=== PATIENT | male | born 1940 | race Caucasian/White ===

== ENCOUNTER 2020-11-28 17:46 | Inpatient (IN) | payer OTHER, MEDICARE ==
[~2020-11-28] VITALS: Ht 180.3 cm; Wt 84.4 kg
[2020-11-28 17:52] VITALS: BP 106/50
[2020-11-28 18:15] LABS: ABSOLUTE NEUTROPHILS 7.8 thou/uL (1.4-8.2); BASOPHILS 0.2 % (0.0-2.0); EOSINOPHILS 0.1 % (0.0-3.0); HEMATOCRIT 44.6 % (42.0-52.0); HEMOGLOBIN 14.7 gm/dL (14.0-18.0); LYMPHOCYTES 7.6 % (24.0-44.0); MCH 31.6 pg (26.0-34.0); MCHC 32.9 g/dL (28.0-37.0); MCV 96.2 fL (80.0-100.0); MONOCYTES 8.7 % (1.0-8.0); PLATELET COUNT 227 thou/uL (150-400); POLYS 83.4 % (36.0-66.0); RBC 4.64 mil/uL (4.50-6.00); RDW 13.4 % (10.5-14.5); WBC 9.4 thou/uL (4.0-11.0)
[2020-11-28 18:25] LABS: CALCIUM 8.6 mg/dL (8.5-10.1); CREATININE 0.9 mg/dL (0.7-1.3); POTASSIUM 3.1 mmol/L (3.5-5.1)
[2020-11-28 18:31] LABS: ALBUMIN 3.1 g/dL (3.4-5.0); DIRECT BILIRUBIN 0.9 mg/dL (<0.1-0.2); TOTAL BILIRUBIN 2.4 mg/dL (0.2-1.0); TOTAL PROTEIN 5.9 g/dL (6.4-8.2)
[2020-11-28] MEDS ORDERED: DILT-XR120 MG PO (18:50)
[2020-11-28] MEDS ORDERED: PROTONIX40 M4 PO (18:50)
[2020-11-28] MEDS ORDERED: OXYBUTYNIN 5 MG5 M2 PO (18:51)
[2020-11-28] MEDS ORDERED: FLOMAX0.4 MG PO (18:51)
[2020-11-28] MEDS ORDERED: ZETIA10 MG PO (18:52)
[2020-11-28] MEDS ORDERED: PYRIDOSTIGMINE60 MG PO (18:52)
[2020-11-28] MEDS ORDERED: PROSCAR 5MG TABL5 M1 PO (18:52)
[2020-11-28] MEDS ORDERED: IRBESARTAN-HCT1 EACH PO (18:53)
[2020-11-28] MEDS ORDERED: LIPITOR40 MG PO (18:53)
[2020-11-28] MEDS ORDERED: ASA81BEC PO (18:54)
[2020-11-28] MEDS ORDERED: PLAVIX 75 MG TA75 MG PO (18:54)
[2020-11-28 21:07] LABS: URINE BILIRUBIN NEGATIVE (Negative); URINE BLOOD 1+ (Negative); URINE CLARITY CLEAR; URINE COLOR YELLOW; URINE GLUCOSE-RANDOM* NEGATIVE (Negative); URINE KETONES TRACE (Negative); URINE LEUKOCYTES-REFLEX NEGATIVE (Negative); URINE NITRITE-REFLEX NEGATIVE (Negative); URINE PROTEIN (DIPSTICK) TRACE (Negative); URINE SPECIFIC GRAVITY 1.015 (1.005-1.035)
[2020-11-28 21:34] LABS: BACTERIA-REFLEX 1-9 Few /HPF (None Seen); CASTS None Seen /LPF (None Seen); CRYSTALS None Seen /LPF (None Seen); MUCUS 4-6 Moderate strn/LPF (None Seen); SQUAMOUS 4-10 Moderate /LPF (0-3); URINE WBC-REFLEX 0-5 Rare /HPF (0-5)
[2020-11-29 05:02] LABS: HEMATOCRIT 43.2 % (42.0-52.0); HEMOGLOBIN 14.4 gm/dL (14.0-18.0); MCH 32.1 pg (26.0-34.0); MCHC 33.3 g/dL (28.0-37.0); MCV 96.4 fL (80.0-100.0); RBC 4.48 mil/uL (4.50-6.00); RDW 13.3 % (10.5-14.5); WBC 7.7 thou/uL (4.0-11.0)
[2020-11-29 05:28] LABS: CALCIUM 8.1 mg/dL (8.5-10.1); CREATININE 0.6 mg/dL (0.7-1.3); MAGNESIUM 2.5 mg/dL (1.8-2.4); POTASSIUM 3.8 mmol/L (3.5-5.1)
[2020-11-29 06:57] VITALS: BP 121/59
[2020-11-29 07:00] VITALS: BP 124/59
[2020-11-29 08:29] VITALS: BP 129/68
[2020-11-29 11:49] VITALS: BP 125/95
[2020-11-29 15:26] VITALS: BP 102/53
--- NOTE | 2020-11-29 19:42 | NUR ---
PT ADMIITTED FROM ER FOR COVID POSITIVE AND PNEUMONIA, PT IS A&OX2 ( PERSON AND PLACE), PT IS ON O2 4L/MIN/NC TO KEEP O2SAT 92-96%, PT HAS STARTED IV ABX AND IV REMDESIVIR, PT GETS UP TO CHAIR WITH ASSIST , PT'S VS ARE STABLE, PT DENIES PAIN AND SOB BY THIS TIME.
[2020-11-29 20:39] VITALS: BP 119/55
[2020-11-30 03:46] VITALS: BP 104/66
--- NOTE | 2020-11-30 04:23 | NUR ---
PT CONFUSED. HAS CONFUSED CONVERSATIONS AND IS IRRITABLE. HE TRIES TO GET UP AT TIMES WITHOUT HELP. BED ALARM ON , BED DOWN , CALL LIGHTIS IN REACH. VSS. PROGRESSING SLOWLY TOWARDS D/C GOALS. UNLABORED ON 4LNC.
[2020-11-30 06:50] LABS: ALBUMIN 2.9 g/dL (3.4-5.0); CALCIUM 8.2 mg/dL (8.5-10.1); CREATININE 0.8 mg/dL (0.7-1.3); DIRECT BILIRUBIN 0.2 mg/dL (<0.1-0.2); PHOSPHORUS 1.9 mg/dL (2.6-4.7); POTASSIUM 3.7 mmol/L (3.5-5.1); TOTAL BILIRUBIN 0.8 mg/dL (0.2-1.0)
[2020-11-30 06:51] LABS: ALBUMIN 2.9 g/dL (3.4-5.0)
[2020-11-30 07:52] VITALS: BP 113/61
--- NOTE | 2020-11-30 11:04 | HC ---
[facility] [place] [address] CONSULTATION Name: DAWN ELLISON Room #: 363-P [facility] IN M.R.#: [id number] Admission: 11/28/20 Attend Phys: Orlando Stephen Discharge: Date of : 36 Report #: [id number] THIS REPORT FOR: cc: LUI - Cheryl family physician/PCP LUI - Cheryl family physician/PCP Jose Romero MD ~ DATE OF SERVICE: 11/29/2020 INFECTIOUS DISEASE CONSULTATION ATTENDING PHYSICIAN: Orlando Stephen MD REASON FOR EVALUATION: COVID-19 infection, complicated by pneumonitis, respiratory failure. HISTORY OF PRESENT ILLNESS: Chart reviewed, the patient examined. This is an 80-year-old gentleman with history of hypertension, reflux, who presented to the Emergency Room with encephalopathy, complaints of difficulty breathing. Evaluation was undertaken, confirmed positive COVID testing with antigen. Chest x-ray does show bilateral interstitial infiltrates. Influenza antigen was negative. Procalcitonin 0.05. Urinalysis, minimal pyuria. Blood cultures are sterile thus far. He had low-grade temperature elevations. Notes he has been quite anorexic with poor p.o. intake. ALLERGIES: MORPHINE. CURRENT MEDICATIONS: Include azithromycin, ceftriaxone, enoxaparin, finasteride, oxybutynin, diltiazem CD, aspirin, atorvastatin, clopidogrel, tamsulosin, ascorbic acid, famotidine, methylprednisolone, zinc. PAST MEDICAL HISTORY: As noted above hypertension, hyperlipidemia, reflux, BPH, atrial fibrillation, previous left knee replacement. SOCIAL HISTORY: No ethanol. Of significance, no tobacco or illicit drug use. 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 FAMILY HISTORY: Noncontributory. REVIEW OF SYSTEMS: Otherwise, unremarkable. PHYSICAL EXAMINATION: GENERAL: He is mildly encephalopathic. He is generally responsive, appears somewhat chronically ill, mildly undernourished. VITAL SIGNS: Temperature 97.2 with a T-max of 99.9, pulse 87, respirations 20, blood pressure 125/95. He is maintained on 4 liters nasal cannula oxygen at [address] [address] CONSULTATION Name: DAWN ELLISON Room #: 363-P [facility] IN ..#: [id number] Admission: 11/28/20 Attend Phys: Orlando Stephen Discharge: Date of : 36 Report #: [id number] this point. HEENT: Normocephalic. Extraocular muscles intact. NECK: Supple. LUNGS: Diminished breath sounds. Scattered crackles at the bases. HEART: Regular, has soft systolic murmur. ABDOMEN: Soft, nontender, nondistended. EXTREMITIES: No cyanosis. GENITOURINARY AND RECTAL: Deferred. LABORATORY DATA: Blood cultures sterile thus far. Most recent electrolytes: Sodium 132, potassium 3.8, chloride 99, bicarbonate is 19, anion gap of 14, BUN and creatinine 16 and 0.6, glucose of 132. CBC: White count 7.7, H and H 14.4 and 43.2, platelets of 259. Sed rate of 9. Urinalysis, 0-5 white cells, 1-[address] of the head, no acute intracranial process. Influenza antigen for A and B was negative. Lactic acid 1.4. Procalcitonin 0.05. ASSESSMENT: COVID-19 infection, complicated by pneumonitis, does have degree of encephalopathy, it is unclear what his baseline is. He is quite tenuous at this point. We will add remdesivir, it is difficult to ascertain exactly the timing of his illness. I would not think he have much in the way of reserve. We will dose with ivermectin as well. Continue empiric therapy with antibacterials, corticosteroids, completes regimen of vitamins as well. He remains tenuous. We will continue oxygen support as needed. <ELECTRONICALLY SIGNED> By: Jose Romero MD 11/30/20 1104 [id number] Jose Romero MD /nt
[2020-11-30 11:44] VITALS: BP 111/61
--- NOTE | 2020-11-30 13:56 | NUR ---
INITIAL ASSESSMENT: SUPRIYA reviewed chart and spoke with nursing and attending physician. Pt was admitted from home due to pneumonia. Pt placed in Enhaced Isolation due to positive COVID-19 test. Pt is afebrile and requiring 4L of O2. Pt is on IV abx and IV steroids. Pt is completing courses of Remdesivir and Ivermectin. SUPRIYA placed call to pt's room. No answer. SUPRIYA spoke with pt's , Evelyn, via phone. Introduced role of SW. Pt is normally alert/orientated x 4 at home. Pt's states that pt had positive COVID test on Sat. 11/13. Since that time, pt has had periods of confusion. Prior to admission, pt was independent with ADLs. Pt does not use any DME. No hx of services or post-acute placement. [facility] 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 SUPRIYA requested PT/OT evals to be ordered to assist with recommendations for discharge. SUPRIYA is following to assist as needed with discharge planning.
[2020-11-30 16:26] VITALS: BP 151/128
[2020-11-30 19:32] VITALS: BP 110/60
[2020-12-01 04:01] VITALS: BP 140/51
--- NOTE | 2020-12-01 06:51 | NUR ---
CONFUSED.ON O2 5L NC AND KEPT HIS OXYGEN.WILL GET UP AND UNSTEADY AND WILL NOT CALL.MONITOR SHOWS SINUS ELIAS ARRYTHMIA.POC CONTINUED.
[2020-12-01 07:01] LABS: ALBUMIN 2.5 g/dL (3.4-5.0); CALCIUM 8.1 mg/dL (8.5-10.1); CREATININE 0.7 mg/dL (0.7-1.3); DIRECT BILIRUBIN 0.2 mg/dL (<0.1-0.2); PHOSPHORUS 2.4 mg/dL (2.6-4.7); TOTAL BILIRUBIN 0.5 mg/dL (0.2-1.0); TOTAL PROTEIN 5.1 g/dL (6.4-8.2)
[2020-12-01 08:24] VITALS: BP 118/61
[2020-12-01 12:21] VITALS: BP 131/75
--- NOTE | 2020-12-01 13:29 | NUR ---
SW reviewed chart and spoke with nursing and attending physician. Pt remains in Enhanced Isolation due to COVID-19. Pt is afebrile and on 5L of O2. Pt is on IV abx and IV steroids. Completing courses of Remdesivir and Ivermectin. PT/OT is working with pt to assist with recommendations for discharge. Pt lives at home with his . Pt was independent with ADLs prior to admission. SW is following to assist as needed with discharge planning.
[2020-12-01 15:31] VITALS: BP 131/75
[2020-12-01 15:33] VITALS: BP 128/55
--- NOTE | 2020-12-01 15:33 | NUR ---
FREQUENT REORIENTATION TO NOT GETTING OOB BY HIMSELF AND HIGH RISK FOR FALLS. HE AGREED TO CALL AND ALL BED ALARMS ARE ON AT THIS TIME WELL. DENIES ANY PAIN AT PRESENT AND BREATHING IS NON LABORED OVERALL.
[2020-12-01 20:02] VITALS: BP 120/70
[2020-12-02 03:15] VITALS: BP 118/88
--- NOTE | 2020-12-02 05:52 | NUR ---
PT LYING IN BED. VOIDING PER URINAL. DENIES PAIN. RESTING COMFORTABLY. NO NEEDS VOICED. CALL LIGHT WITHIN REACH. FREQUENT OBSERVATION.
[2020-12-02 07:30] VITALS: BP 160/76
[2020-12-02 09:53] LABS: ALBUMIN 2.9 g/dL (3.4-5.0); CALCIUM 8.6 mg/dL (8.5-10.1); CREATININE 0.7 mg/dL (0.7-1.3); DIRECT BILIRUBIN 0.2 mg/dL (<0.1-0.2); PHOSPHORUS 2.5 mg/dL (2.5-4.9); POTASSIUM 4.5 mmol/L (3.5-5.1); TOTAL BILIRUBIN 0.5 mg/dL (0.2-1.0); TOTAL PROTEIN 5.3 g/dL (6.4-8.2)
[2020-12-02 11:14] VITALS: BP 154/96
[2020-12-02 15:19] VITALS: BP 158/50
--- NOTE | 2020-12-02 18:36 | NUR ---
PATIENT NOW SLEEPING AND RESPIRATIONS ARE EVEN NON LABORED. PLEASANT WITH CARE.
[2020-12-02 20:55] VITALS: BP 172/74
[2020-12-03 05:33] VITALS: BP 125/76
[2020-12-03 06:02] LABS: ALBUMIN 2.5 g/dL (3.4-5.0); CALCIUM 8.2 mg/dL (8.5-10.1); CREATININE 0.6 mg/dL (0.7-1.3); DIRECT BILIRUBIN 0.2 mg/dL (<0.1-0.2); PHOSPHORUS 2.5 mg/dL (2.5-4.9); POTASSIUM 3.8 mmol/L (3.5-5.1); TOTAL BILIRUBIN 0.6 mg/dL (0.2-1.0); TOTAL PROTEIN 4.9 g/dL (6.4-8.2)
--- NOTE | 2020-12-03 06:09 | NUR ---
Pt. slept fair during the night. Very forgetful and impulsive. Reorientation given. Bed alarm for safety. Maintaining O2 sat in the low 90's on 2L/NC. Cont. on enhanced precaution, afebrile.
[2020-12-03 07:27] VITALS: BP 142/77
[2020-12-03 11:06] VITALS: BP 150/73
[2020-12-03 15:54] VITALS: BP 129/60
--- NOTE | 2020-12-03 15:58 | NUR ---
assumed care of pt at 0700. pt aox2-3 in no acute distress. impulsive at times when needing to use bathroom. supplemental oxygen in place. up w/ sba. voicing no concerns at this time. wanting to go home. anticipating d/c saturday per physician.
[2020-12-03 19:42] VITALS: BP 154/63
[2020-12-04 04:56] VITALS: BP 157/82
[2020-12-04 06:06] LABS: HEMATOCRIT 39.8 % (42.0-52.0); HEMOGLOBIN 13.4 gm/dL (14.0-18.0); MCH 31.4 pg (26.0-34.0); MCHC 33.7 g/dL (28.0-37.0); MCV 93.4 fL (80.0-100.0); RBC 4.26 mil/uL (4.50-6.00); RDW 13.4 % (10.5-14.5); WBC 12.5 thou/uL (4.0-11.0)
[2020-12-04 06:14] LABS: ALBUMIN 2.8 g/dL (3.4-5.0); CALCIUM 8.7 mg/dL (8.5-10.1); CREATININE 0.6 mg/dL (0.7-1.3)
--- NOTE | 2020-12-04 06:17 | NUR ---
PT IS CONFUSED NOT TO UNDERSTAND DIRECTIONS ABOUT GETTING OUT OF BED. BED ALARM IS A MUST. PT CAN USE BSC WITH X1 ASSIST. LUNGS DIMINISHED AND 02 IS AT 3L. HOURLY ROUNDING.
[2020-12-04 07:42] VITALS: BP 152/59
[2020-12-04] MEDS ORDERED: ACEROLA C500 MG PO (09:59)
[2020-12-04] MEDS ORDERED: CEFUROXIME500 MG PO (09:59)
[2020-12-04] MEDS ORDERED: PREDNISONE 5 MG5 M1 PO (10:00)
[2020-12-04 11:45] VITALS: BP 148/70
[2020-12-04 12:46] VITALS: BP 148/70
--- NOTE | 2020-12-04 17:59 | NUR ---
assumed patient care at 0700. alert. progressing towards poc goals. dc home with HH. SW [facility]. [employer] WILL BE HERE AT [phone]. UPDATED WITH .
[2020-12-05 11:06] VITALS: BP 148/70
--- NOTE | 2020-12-05 11:07 | NUR ---
Pt dc'd to home yesterday via w/c van. Director Of Cardiac Cath Lab spoke with pt's spouse this am to discuss hh options and referral. They prefer [facility] as the pt's pcp is Dr. Georges Luke from [facility] but are open to any other agency if they can not accept. [facility] contacted and they are on deversion for the pt's service area. Referral called and faxed to [facility]. Awaiting response. The pt was weaned of Oxygen prior to his dc. Will follow.
== END 2020-12-04 18:16 | disposition home health service (06) | DRG 177 ==
LOC: ER 17:46 → 3W 21:27 → EROBS 21:27 → 3W 11-29 07:22
PROVIDERS: Nurse Practitioner; Nurse Practitioner Family; Specialist; ADMIT Hospitalist; ATTEND Hospitalist
PROC: XW033E5 Introduction of Remdesivir Anti-infective into Peripheral Vein, Percutaneous Approach, New Technology Group 5 (ICD-10-PCS; principal; 2020-11-29)
DX: U07.1 COVID-19 (principal); G93.41 Metabolic encephalopathy; J96.90 Respiratory failure, unspecified, unspecified whether with hypoxia or hypercapnia; J12.82 Pneumonia due to coronavirus disease 2019; E87.1 Hypo-osmolality and hyponatremia; R74.01 Elevation of levels of liver transaminase levels; I48.91 Unspecified atrial fibrillation; I10 Essential (primary) hypertension; K21.9 Gastro-esophageal reflux disease without esophagitis; E78.5 Hyperlipidemia, unspecified; N40.0 Benign prostatic hyperplasia without lower urinary tract symptoms; E87.6 Hypokalemia; Z96.652 Presence of left artificial knee joint; E78.00 Pure hypercholesterolemia, unspecified; F03.90 Unspecified dementia, unspecified severity, without behavioral disturbance, psychotic disturbance, mood disturbance, and anxiety; Z79.01 Long term (current) use of anticoagulants; Z79.82 Long term (current) use of aspirin; Z79.899 Other long term (current) drug therapy; Z88.5 Allergy status to narcotic agent
CPT/HCPCS: 10879

== ENCOUNTER 2020-12-09 20:33 | Inpatient (IN) | payer OTHER, MEDICARE ==
[~2020-12-09] VITALS: Ht 180.3 cm; Wt 81.6 kg
[~2020-12-09 20:33] MED LIST: ACEROLA C500 MG PO; ASA81BEC PO; CEFUROXIME500 MG PO; DILT-XR120 MG PO; FLOMAX0.4 MG PO; IRBESARTAN-HCT1 EACH PO; LIPITOR40 MG PO; OXYBUTYNIN 5 MG5 M2 PO; PLAVIX 75 MG TA75 MG PO; PREDNISONE 5 MG5 M1 PO; PROSCAR 5MG TABL5 M1 PO; PROTONIX40 M4 PO; PYRIDOSTIGMINE60 MG PO; ZETIA10 MG PO
[2020-12-09 20:36] VITALS: BP 137/57
[2020-12-09 21:01] LABS: HEMOGLOBIN 14.6 gm/dL (14.0-18.0); MCH 31.4 pg (26.0-34.0); MCHC 32.4 g/dL (28.0-37.0); MCV 96.7 fL (80.0-100.0); PLATELET COUNT 335 thou/uL (150-400); RBC 4.65 mil/uL (4.50-6.00); RDW 14.2 % (10.5-14.5); WBC 23.5 thou/uL (4.0-11.0)
[2020-12-09 21:10] LABS: ANION GAP 9 mmol/L (7-16); BUN 11 mg/dL (7-18); CALCIUM 9.1 mg/dL (8.5-10.1); CHLORIDE 100 mmol/L (98-107); CO2 25 mmol/L (21-32); CREATININE 0.8 mg/dL (0.7-1.3); GLUCOSE 103 mg/dL (74-106); POTASSIUM 4.2 mmol/L (3.5-5.1); SODIUM 134 mmol/L (136-145)
[2020-12-09 21:20] LABS: LIPASE 100 U/L (73-393); MAGNESIUM 2.1 mg/dL (1.8-2.4); SGOT 31 U/L (15-37); SGPT 45 U/L (16-63); TOTAL BILIRUBIN 2.6 mg/dL (0.2-1.0); TOTAL PROTEIN 6.3 g/dL (6.4-8.2); TROPONIN-I <0.06 ng/mL (<0.06)
[2020-12-09 21:52] LABS: ABSOLUTE NEUTROPHILS 20.9 thou/uL (1.4-8.2)
[2020-12-10] VITALS (7 sets, daily range): BP systolic 11–138; BP diastolic 52–64
[2020-12-10 01:51] LABS: URINE BILIRUBIN NEGATIVE (Negative); URINE BLOOD NEGATIVE (Negative); URINE CLARITY CLEAR; URINE COLOR YELLOW; URINE GLUCOSE-RANDOM* NEGATIVE (Negative); URINE KETONES NEGATIVE (Negative); URINE LEUKOCYTES-REFLEX NEGATIVE (Negative); URINE NITRITE-REFLEX NEGATIVE (Negative); URINE PROTEIN (DIPSTICK) NEGATIVE (Negative); URINE UROBILINOGEN 0.2 E.U./dl (0.2-1.0)
[2020-12-10 06:31] LABS: HEMATOCRIT 42.1 % (42.0-52.0); HEMOGLOBIN 13.6 gm/dL (14.0-18.0); MCH 31.2 pg (26.0-34.0); MCHC 32.3 g/dL (28.0-37.0); MCV 96.5 fL (80.0-100.0); RBC 4.37 mil/uL (4.50-6.00); RDW 14.3 % (10.5-14.5); WBC 22.2 thou/uL (4.0-11.0)
[2020-12-10 06:35] LABS: CALCIUM 8.2 mg/dL (8.5-10.1); CREATININE 0.8 mg/dL (0.7-1.3); POTASSIUM 4.5 mmol/L (3.5-5.1)
--- NOTE | 2020-12-10 16:29 | NUR ---
Pt arrived from recovery room to floor at 1325 in stable condition.Postop assessment completed.vss.Clear liq tray given and well tolerated.Dr Bartlett rounded on pt.No new order noted.Will continue to monitor.
[2020-12-11 00:49] VITALS: BP 138/61
[2020-12-11 04:54] LABS: INR 1.1; PROTIME 11.4 Seconds (9.3-11.4)
[2020-12-11 04:55] LABS: HEMATOCRIT 36.8 % (42.0-52.0); MCH 31.4 pg (26.0-34.0); MCHC 32.6 g/dL (28.0-37.0); MCV 96.3 fL (80.0-100.0); RBC 3.82 mil/uL (4.50-6.00); RDW 14.4 % (10.5-14.5); WBC 16.1 thou/uL (4.0-11.0)
--- NOTE | 2020-12-11 05:03 | NUR ---
Pt. rested quietly at intervals during the night when checked on during frequent rounds. He c/o minimal pain to abdomianl area. Pt. encouraged to let staff know if he needs any pain meds. Midline incision dressing has moderate amount of bleeding and dressing is intact. No c/o nausea. Adequate urinary output via sheriff catheter.
[2020-12-11 05:05] LABS: ALBUMIN 1.8 g/dL (3.4-5.0); CALCIUM 7.7 mg/dL (8.5-10.1); CREATININE 0.7 mg/dL (0.7-1.3); TOTAL BILIRUBIN 1.3 mg/dL (0.2-1.0); TOTAL PROTEIN 4.5 g/dL (6.4-8.2)
[2020-12-11 08:02] VITALS: BP 131/65
[2020-12-11 15:00] VITALS: BP 111/53
--- NOTE | 2020-12-11 17:23 | NUR ---
Assumed pt care at 7am.Pt in bed resting without c/o.Assessment completed.vss. Pt piv went bad this am ,attempted to replace but failed.Iv team called and new piv placed on right fore arm.Dr Bartlett here,order noted.Pt kept npo as ordered.Maintenance ivf and antibioc given as ordered.Vanco trough was 16 at 1300.Pharmacy notified and no new order noted.Pt in bed resting and watching tv at present,medicated with morphine ivp x1 today with relief.Will continue to monitor.
[2020-12-11 20:07] VITALS: BP 135/67
--- NOTE | 2020-12-12 04:47 | NUR ---
ASSUMED CARE OF PT AT 1900HRS. PT AOX3-4 AND LETS NEEDS BE KNOWN. FALL PRECAUTION IN PLACE. PT IS NPO. ESPOSITO IN PLACE AND PATIENT. ABX TREATMENT CONTINUED. SURGICAL DRESSING INTACT WITH SOME SEROSANGUINEIOUS DRAINAGE. PT REPORTED SOME PAIN AND WAS TREATED WITH PRN PAIN MEDS. PT WAS CONCERNED ABOUT PLAN OF CARE AND RN EXPLAINED PROCESS IN DETAIL. PT WAS ABLE TO GET COMFORTABLE AND SLEEP PART OF THE SHIFT. WILL CONTINUE TO MONITOR.
[2020-12-12 05:25] LABS: HEMATOCRIT 35.9 % (42.0-52.0); HEMOGLOBIN 11.7 gm/dL (14.0-18.0); MCH 31.8 pg (26.0-34.0); MCHC 32.5 g/dL (28.0-37.0); MCV 97.8 fL (80.0-100.0); RBC 3.67 mil/uL (4.50-6.00); RDW 14.6 % (10.5-14.5); WBC 12.5 thou/uL (4.0-11.0)
[2020-12-12 05:43] LABS: ALBUMIN 1.8 g/dL (3.4-5.0); CALCIUM 7.6 mg/dL (8.5-10.1); CREATININE 0.7 mg/dL (0.7-1.3); MAGNESIUM 2.2 mg/dL (1.8-2.4); TOTAL BILIRUBIN 1.3 mg/dL (0.2-1.0); TOTAL PROTEIN 4.7 g/dL (6.4-8.2)
[2020-12-12 05:52] LABS: POTASSIUM 4.8 mmol/L (3.5-5.1)
--- NOTE | 2020-12-12 07:22 | EKG ---
[place] [address] [facility] [place] [address] ELECTROCARDIOGRAM REPORT Name: DAWN ELLISON Room #: 455-P ADM IN M.R.#: [id number] Admission: 12/09/20 Attend Phys: Josh Escoto MD Discharge: Date of : 36 Report #: [id number] [facility] ED Test Date: 2020-12-09 Test Time: 20:31:53 Pat Name: DAWN ELLISON Department: Room: [facility] Gender: M Housekeeping Aide: cw : 1940 Requested By: Kathy Dillon Order Number: [id number] MD: Kd Rodriguez Measurements Intervals [place] Rate: 93 P: 19 RI: 188 QRS: 14 QRSD: 83 T: 6 QT: 341 QTc: 425 Interpretive Statements Sinus rhythm Multiple ventricular premature complexes Borderline T abnormalities, inferior leads Baseline wander in lead(s) V3 No previous ECG available for comparison Electronically Signed On 12-12-2020 7:22:41 [employer]PA[employer] by Kd Rodriguez [email or web address] <ELECTRONICALLY SIGNED> By: Kd Rodriguez MD, [facility] 12/12/20721 30 30 Kd Rodriguez MD, FACC /EPI
[2020-12-12 07:55] VITALS: BP 168/70
--- NOTE | 2020-12-12 12:05 | NUR ---
ASSUMED PT CARE THIS AM. PT A&OX4, MAKES NEEDS KNOWN. MIDLINE DRESSING C/D/I. IV PATENT, FLUIDS AND MEDS INFUSING WELL. ESPOSITO DISCONTINUED THIS AM, WILL BLADDER SCAN UPON FIRST VOID. NO PAIN REPORTED. FALL PRECAUTIONS IN PLACE. PT COMPLAINS OF WANTING TO GO HOME TODAY, EXPLAINED BARRIERS TO DISCHARGING TO PATIENT. PT REPORTS UNDERSTANDING. PT IS AMBULATORY WITH A WALKER TO THE CHAIR AND BEDSIDE COMMODE WHEN NEEDED.
--- NOTE | 2020-12-12 15:47 | NUR ---
PT ADMITTED REALTED TO RUPTURE APPENDIX S/P EXP LAP WITH APPENDECTOMY. CM REVIEWED CHART AND SPOKE WITH CARE TEAM. CM CALLED AND SPOKE WITH PT OVER THE PHONE THIS DAY. PT APPEARED TO BE A&O X4. CM ROLE INTRODUCED. PT INDICATED HE LIVES IN A HOUSE WITH HIS SPOUSE WITH 1 STEP TO ENTER AND NO STEPS INSIDE. 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 PT INDICATED NO HOME O2. PT HAD SERVICES THROUGH [facility] IN PAST. PT'S PCP IS DR. LAWRENCE AVALOS AT [facility]. PT INDICATED HE ANTICIPATES RETURNING HOME ONCE MEDICALLY STABLE. PT ON IV ABX AT THIS MOMENT. CM TO FOLLOW INDICATED WITH DC PLANNING.
[2020-12-12 16:06] VITALS: BP 170/82
--- NOTE | 2020-12-12 17:08 | PATH ---
[facility] [place] [place] [address] PATHOLOGY RPT PROCEDURE Name: ELLISONDAWN E Room #: 455-P ADM IN M.R.#: [id number] Admission: 12/09/20 Date of : 38 Discharge: Report #: [id number] Path Case #: [id number] [facility] Accession Number: [id number] . 01 Material submitted: . appendix - APPENDIX . 01 Clinical history: . EXPLORATORY LAPAROTMY APPENDECTOMY PERFORATED APPENDICITIS . 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 - Negative for high-grade dysplasia or invasion. - Marked acute serositis identified. - Proximal margin with unremarkable mucosa and no evidence of dysplasia. (IUV:pit 12/12/2020) QTP 12/12/2020 1529 Local . 02 Electronically signed: . Patrica Esteves MD, Pathologist NPI- [id number] . 01 Gross description: . Received in formalin labeled "Dawn Ellison, appendix" is an appendix measuring 9.2 cm in length and ranging from 0.8-1.2 cm in diameter. There is an attached portion of mesoappendix measuring 9.0 x 3.6 x 1.8 cm. The proximal margin is received open. The serosa is pink-red with extensive hemorrhage and purulent exudate at the distal aspect. The specimen is sectioned to reveal a mucinous cystic structure in the distal tip of the appendix measuring 1.0 x 1.0 x 0.8 cm. The cystic structure is located 7.2 cm from the proximal margin. The remainder of the appendix is sectioned to reveal no fecaliths or perforations and a luminal diameter of 0.4 cm. Spaghetti Machine Operator sections of the specimen are submitted as follows: A1 proximal margin and special service representative cross sections of mid appendix A2-A4 entire distal tip including entire cystic structure ([facility]; 12/11/2020) . . [facility] 12/11/2020 09 Local . 02 Pathologist provided ICD-10: D12.1 . 02 [address] [address] PATHOLOGY RPT PROCEDURE Name: DAWN ELLISON E Room #: 455-P [facility] IN M.R.#: [id number] Admission: 12/09/20 Date of : 36 Discharge: Report #: [id number] Path Case #: [id number] Specimen Comment: A courtesy copy of this report has been sent to [phone] Specimen Comment: Report sent to Performed at: [address], [place] [id number] MD Puneet Gomez MD Phone: [phone] Performed at: [address] [id number] MD Patrica Esteves MD Phone: [phone]
[2020-12-12 19:49] VITALS: BP 166/88
--- NOTE | 2020-12-13 07:39 | NUR ---
PROGRESS PT A/O X4 LUNGS CLEAR TELE INTACT READING SR. UP WITH SBA GAITBELT AND WALKER VOIDING QS DARK YELLOW URINE, HAD A MEDIUM BM THIS AM PASSING FLATUS DENIES NAUSEA. TOLERATING CLEAR LIQUIDS HAD A JELLO AND APPLE JUICE OVERNIGHT PAIN CONTROLLED WITH HYDROCODONE USING SPARINGLY. WANTS TO DISCHARGE HOME TODAY, DISCUSSED NEED FOR ANTIBIOTICS.
[2020-12-13 09:00] VITALS: BP 146/70
[2020-12-13] MEDS ORDERED: AUGMENTIN 875-1 EACH PO (09:24)
[2020-12-13] MEDS ORDERED: HYDROCODON-ACE1 EAC7 PO (09:25)
[2020-12-13 12:19] VITALS: BP 146/70
--- NOTE | 2020-12-13 13:38 | NUR ---
ASSUMED PT CARE THIS AM. PT CALLS APPROPRIATELY WHEN NEEDED, FALL PRECAUTIONS IN PLACE. IV PATENT, FLUIDS INFUSING. MEDS TAKEN WELL THIS AM. NO PAIN NOTED AT THIS TIME.
--- NOTE | 2020-12-13 15:27 | NUR ---
HOSPITALIST INDICATED THAT PT IS MEDICALLY STABLE TO DC HOME WITH HH SERVICES TODAY ONCE HE HAS A BM. CM MET WITH PT AT [facility] THIS DAY AND HE IS AGREEABLE TO HH UPON DC. HE IS ACREEABLE WITH REFERRAL BEING SENT TO [facility]. REFERRAL SENT. DEBBIE INDICATED THAT PT HAD BEEN ON SERVICE WITH THEM CUSTOMER SUPPORT ENGINEER AND WILL RESUME SERVICES UPON DC. PRESTON ATTEMPTED PT TO PT'S THIS AM TO INDICATED THE ABOVE MESSAGE LEFT. ORDERS WILL NEED TO BE FAXED TO ONCE COMPLETED.
[2020-12-13 16:46] VITALS: BP 165/78
--- NOTE | 2020-12-13 16:51 | NUR ---
FAXED DC ORDERS/SUMMARY TO [facility] HH RECEIVED CONFIRMATION SPOKE WITH INTAKE THEY WILL ARRANGE VISITS WITH PT.
[2020-12-13 19:51] VITALS: BP 144/84
[2020-12-14 07:29] VITALS: BP 134/59
[2020-12-14 09:59] VITALS: BP 146/70
--- NOTE | 2020-12-14 13:53 | NUR ---
CARE TEAM INDICATED THAT PT HAD A BM AND IS MEDICALLY STABLE TO DC HOME WITH HOME HEALTH THIS DAY. CM HAD ATTEMPTED PC TO [place]'S SPOUSE YESTERDAY AND HAD LEFT VM WITH NO RESPONSE. CM SPOKE WITH PT'S SPOUSE THIS AM. SHE INDICATED THAT SHE IS AT HOME RECOVERING FROM COVID WELL RIGHT NOW AND THAT SHE ISN'T ABLE TO PROVIDE CARE/ASSISTANCE TO PT UPON HIS RETURN HOME. SHE INDICATED THAT SHE AND THEIR DTR HAD SPOKEN WITH SURGON ABOUT PT GOING FOR REHAB. CM INDICATED THAT CM DIDN'T HAVE DTR'S CONTACT ONLY SON LISTED. SHE PROVIDED LINUS STANTON DTR"S NUMBER CM SPOKE WITH HER. CM SMAILED HER A SNF LIST AND PROVIDED ONE TO PT TO REVIEW. PT IS AGREEABLE. DTR IS REVIEWING LIST OF THIS NOTE. CM TO SEND REFERRALS FOR [facility] SKILLED PLACEMENT TODAY. CM TO FOLLOW INDICATED WITH DC PLANNING.
[2020-12-14 16:18] VITALS: BP 133/82
--- NOTE | 2020-12-14 16:32 | NUR ---
Assumed pt care at 7am.Assessment completed.vss.Pt tolerated clear liq.Dr Stephen here,order noted.Pt refused to take pt back home due to covid 19 Pt was very upset and tearful when informed about dc to rehab before returning home.Emotional support given.Dewayne given this afternoon with relief.Will continue to monitor.
[2020-12-14 20:10] VITALS: BP 150/75
[2020-12-15 08:00] VITALS: BP 136/72
[2020-12-15 08:05] VITALS: BP 136/72
--- NOTE | 2020-12-15 08:30 | NUR ---
PROGRESS PT A/O X4 BUT CONFUSED AT TIMES. REPORTED PAIN TO ABDOMEN THAT WAS RELIEVED WITH HYDROCODONE. VOIDING PER URINAL HAS URGENCY AND SPILLED IT ALL OVER X 2. SMALL FORMED STOOL NOTED IN BATHROOM TOLIET PT HAS GOOD BOWELS SOUNDS REPORTS FLATUS TOLERATING REG DIET BUT INTAKE IS POOR. IVF'S AND ANTIBIOTICS CONTINUE. PT TO DC TO SNF/REHAB WHEN ADEQUATE ACCOMMODATIONS ARE FOUND,
--- NOTE | 2020-12-15 10:53 | NUR ---
CM CALLED AND SPOKE WITH PT'S DTR LINUS THIS AM AT 9:30. SHE INDICATED THAT HER MOM WAS STILL WAITING TO HERAR BACK FROM DR. AVALOS OFFICE ABOUT RECOMMENDED FACILITIES. SHE CALLED CM BACK SHORTLY AFTER CALL AND INDICATED THAT THEY WERE INTERESTED IN [facility]. CM REITERATED THAT THESE WERE ACUTE REHABS AND THAT PT LIKELY ISN'T MEDICALLY COMPLEX ENOUGH AND DOESN'T REQUIRE OVERSIGHT OF A REHAB DOCTOR AND THAT THESE KIND OF FACILITIES WOULD LIKELY BE LOOKING TO DC HOME IN A WEEK PT IS ALREADY VERY HIGH LEVEL. CM INDICATED THAT THE SKILLED FACILITIES ON THE LIST CM HAD EMAILED HER WOULD BE MORE APPROPRIATE AT THIS TIME AND WOULD OFFER DAILY THERAPY AND MY BE ABLE TO KEEP PT A LITTLE LONGER ALOWING PT AND SPOUSE TO RECOVER MORE FULLY. SHE IS TO COMMUNICATE WITH MOTHER AND PCP AND FOLLOW UP WITH CM AGAIN.
[2020-12-15 15:13] VITALS: BP 142/75
--- NOTE | 2020-12-15 16:23 | NUR ---
ASSUMED PT CARE FROM [facility] AT 1300. PT COMPLAINS OF NO PAIN, USES URINAL WHEN NEEDED. IV PATENT, MEDS TAKEN WITHOUT COMPLAINT. PT RESTING IN CHAIR WITH LEGS ELEVATED.
--- NOTE | 2020-12-15 18:35 | NUR ---
Assumed patient care at 0700am. patient was in his room. Assessment completed and Pt VSS. Pt had accident on himself twice. TRUCK MECHANIC gave patient a bath and helped him get comfortable in his chair. DR Sarabia and DR Stephen saw Patient. Approximately 1300 Pt requested for a different nurse. Will continue to monitor patient.
[2020-12-15 20:00] VITALS: BP 148/72
--- NOTE | 2020-12-16 05:45 | NUR ---
VSS-AFEBRILE. LUNGS CLEAR-ROOM AIR. ALERT AND ORIENTED X 4. IRRITABLE OVERNIGHT WANTING TO BE DISCHARGED. DISCUSSED DISCHARGE PROCESS, WELL PLAN FOR CONTINUED CARE AT A FACILITY WHEN DISCHARGED. EVENTUALLY CALMED, AND WAS ABLE TO REST WELL FOR MOST OF SHIFT. NO C/O PAIN. ABDOMINAL DRESSING DRY AND INTACT. VOIDING WITHOUT DIFFICULTY. MODERATE, LOOSE BM THIS SHIFT, WAS ABLE TO CALL APPROPRIATELY TO USE RESTROOM WITH SBA. FALL PRECAUTIONS IN PLACE.
[2020-12-16 07:15] VITALS: BP 163/87
[2020-12-16 15:55] VITALS: BP 149/86
--- NOTE | 2020-12-16 16:49 | NUR ---
CM CALLED PT'S DTR THIS AM AND ASKED WHERE THEY WANTED REFERRALS SENT. SHE INDICATED HER MOTHER HAD SPOKEN WITH NURSE AT DR. LAWRENCE AVALOS OFFICE AND WAS AWAITING A CALL FROM A CLOTH PRINTING BACK TENDER FROM [facility]. PRESTON CALLED PT'S SPOUSE THIS AFTERNOON AND ASKED WHERE THEY WANTED REFERRALS SENT SHE INDICATED SHE WAS STILL WAITING ON THE CALL FROM THE CM. SHE INDICATED SHEIS FRUSTRATED THAT PREFERENCE FOR SKILLED WASN'T CONVEYED BY SURGON UPON ADMISSION. CM AGAIN APPOLOGIZED. STILL AAWAITING FACILITIES TO SEND REFERALS SPOUSE INDICATED THAT SHE DOESN'T WANT HIM GOING JUST ANYWHERE. PT IS ANNOYED HIS IS STILL HERE. CM CONVEYED THAT HIS SPOUSE HAS INDICATED SHE CAN'T ASSIST HIME WITH HIS ADLS AT HOME SHE IS RECOVERING HERSELF AND SHE AND DTR WANT HIM TO GO SKILLED HE IS ANNOYED BY THIS. CM PROVIDED PT HIS AND DTR'S PHONE NUMBERS.
--- NOTE | 2020-12-16 20:03 | NUR ---
Assumed pt care this am, very upset with his family and staff. stated hge is not aware of the plans and demands to know. Pt was informed of status of his pending transfer to another facility. Still awaiting preferred facilities from [facility] family to give to cm. Informed multiple times on this status, pt is very angry and forgetful, needs to be reminded nultiple times through out the day. POC followed with no signs of distress noted. Uses the urinal but would gforget how to use it at times and would miss. Endorsed [facility] nurse.
--- NOTE | 2020-12-17 05:07 | NUR ---
VSS-AFEBRILE. LUNGS CLEAR-ROOM AIR. RESTED WELL THROUGH NIGHT WITH FEW NEEEDS. NO C/O PAIN. VOIDING WITHOUT DIFFICULTY. FALL PRECAUTIONS IN PLACE.
[2020-12-17 09:20] VITALS: BP 155/79
--- NOTE | 2020-12-17 12:14 | NUR ---
Received awake on bed. Due medications
--- NOTE | 2020-12-17 12:15 | NUR ---
Received awake on bed. Due medications given as prescribed, able to swallow meds w/o difficulty. On room air. Vital signs stable. On telemetry; no complains and signs of chest pain, crushing sensation and heaviness. Assisted in ADLs. On regular diet- assisted in eating and drinking; no nausea, no vomiting and no abdominal pain noted. Continent of bowel and bladder, using urinal and able to go to toilet at times. Falls bundle in place. No IV noted, pt pulled out IV this AM and refusing re-insertion- Dr Stephen informed, ok to leave off IV. With abdominal midline surgical wound- dressing C/D/I, no bleeding and swelling noted. using gait belt and walker, standby assist. Pt's called this AM, update given; very upset re: care received by the patient for his whole stay; apologized and explained to her that this is the first time I'm taking care of the patient- will inform charge nurse re: this but she still kept going about being upset that her has to use a urinal- informed her that pt was going to the toilet this AM and pt was the one requesting to use a urinal; Dr Stephen informed re: her complains, Dr Stephen talked to both and patient. For urinalysis, a/w specimen. To continue monitoring patient.
[2020-12-17 13:15] LABS: URINE BILIRUBIN NEGATIVE (Negative); URINE BLOOD TRACE (Negative); URINE CLARITY CLEAR; URINE COLOR YELLOW; URINE GLUCOSE-RANDOM* NEGATIVE (Negative); URINE KETONES NEGATIVE (Negative); URINE LEUKOCYTES NEGATIVE (Negative); URINE NITRITE NEGATIVE (Negative); URINE PROTEIN (DIPSTICK) NEGATIVE (Negative); URINE SPECIFIC GRAVITY 1.015 (1.005-1.035)
[2020-12-17 13:34] LABS: SSA (PROTEIN CONFIRMATORY) NEGATIVE (Negative)
[2020-12-17 15:10] VITALS: BP 137/77
[2020-12-17 20:04] VITALS: BP 155/77
--- NOTE | 2020-12-18 03:20 | NUR ---
VSS-AFEBRILE. NO C/O PAIN. ALERT AND ORIENTED X 4. RESTED WELL THROUGH NIGHT WITH FEW NEEDS. ABDOMINAL DRESSING DRY AND INTACT. VOIDS WITHOUT DIFFICULTY. FALL PRECAUTIONS IN PLACE.
[2020-12-18 08:02] VITALS: BP 157/79
--- NOTE | 2020-12-18 11:38 | NUR ---
Received awake on bed. Due medications given as prescribed, able to swallow meds w/o difficulty. On room air. Vital signs stable. On telemetry; on complaints and signs of chest pain, crushing sensation and heaviness. Assisted in ADLs. On regular diet, tolerating well; no nausea, no vomiting and no abdominal pain noted; encouraged to take supplements but keeps on refusing. With midline surgical incision from ex lap- appy- dressing changed today; C/D/I; no bleeding noted. Continent of bowel and bladder, able to use the urinal and go to the toilet with standby assist. Able to walk around the hallway, with gait belt, walker and stanby assist. Pt upset this morning, wanting to go home- explained to him that he needs to go to rehab but his needs to choose facility first, he is also upset about the taste of water and water served- apologized and offered snacks and alternatives to him but pt still remains upset. To continue monitoring patient.
[2020-12-18 15:00] VITALS: BP 142/67
[2020-12-18 20:40] VITALS: BP 140/66
--- NOTE | 2020-12-19 07:56 | NUR ---
ASSUMED CARE OF PT AT 1900HRS. PT AOX3 AND LETS NEEDS BE KNOWN. FALL PRECAUTION IN PLACE. INSCISION DRESSING IS C/D/I. PT REPORTED SOME PAIN AND PRN PAIN MEDS PROVIDED. PT DENIED NAUSEA AND SOA. PT REPORTS THAT HE IS FRUSTRATED ABOUT STILL BEING IN THE HOSPITAL AND WANTS TO GO HOME. VSS AND NO OTHER S/S OF AVITE DISTRES. PT WAS ABLE GET COMFORTABLE AND SLEEP PART OF THE SHIFT. REPORT GIVEN TO ONCOMING RN.
[2020-12-19 08:12] VITALS: BP 141/75
--- NOTE | 2020-12-19 11:18 | NUR ---
WOUND CONSULT; THERE IS AN AREA TO THE LEFT BUTTOCKS THAT IN MY OPINION IS A SKIN TEAR NOT PRESSURE. THE WOUND IS SMALLER SINCE ADMIT PICTURE. THE PATIENT IS A VERY STONG VIBRANT 80 YEAR OLD. WALKS WITH THERAPY INDEPENDANTLY. NO S/S OF INFECTION. RECOMMEDNATION; KATIE BID/PRN DISCUSSED WITH RANDOLPH
[2020-12-19] MEDS ORDERED: ADULT LOW DOSE81 MG PO (12:20)
[2020-12-19] MEDS ORDERED: MIRALAX17 GM PO (12:20)
[2020-12-19] MEDS ORDERED: COLACE 100 MG100 MG PO (12:20)
[2020-12-19] MEDS ORDERED: FLOMAX0.4 MG PO (12:20)
[2020-12-19] MEDS ORDERED: CARDIZEM CD120 MG PO (12:20)
[2020-12-19] MEDS ORDERED: PYRIDOSTIGMINE60 M1 PO (12:20)
[2020-12-19] MEDS ORDERED: AMOX TR-K CLV1 EAC4 PO (12:20)
[2020-12-19] MEDS ORDERED: CLOPIDOGREL75 MG PO (12:20)
[2020-12-19] MEDS ORDERED: FINASTERIDE5 MG PO (12:20)
--- NOTE | 2020-12-19 13:00 | NUR ---
FAXED REFERRAL TO [facility] SPOKE WITH ANTONIA IN ADM THEY WILL NOT HAVE A BED AVAILABLE TIL SATURDAY.
--- NOTE | 2020-12-19 15:05 | NUR ---
CM SPOKE WITH PT'S SPOUSE AND DTR THIS AM. REFERRAL WAS SENT TO [facility] THEY ARE FULL, REFERRAL SENT TO [facility] WHO HAVE STATED THEY CAN ACCEPT TODAY, [facility] LOOKS LIKE THEY CAN ACCEPT BUT NOT UNTIL TOMORROW. CM NOTIFEID PT'S DTR SHE IS SPEAKING WITH HER MOTHER AND WILL CALL CM BACK. CM AWAITING RESPONSE.
--- NOTE | 2020-12-19 16:16 | NUR ---
FAXED DC ORDERS/SUMMARY FOR DC TOMORROW TO [facility] RECEIVED CONFIRMATION.
[2020-12-19 17:41] VITALS: BP 161/83
--- NOTE | 2020-12-19 18:02 | NUR ---
ASSUMED CARE OF PATIENT AT SHIFT CHANGE. ASSESSMENT CHARTED. MEDICATIONS ADMINISTERED PER MAR. VSS. PATIENT IS A&OX3, MAKES NEEDS KNOWN, DENIES PAIN. PATIENT WORKED W PT/OT THIS DAY AND TOLERATED VERY WELL. PATIENT VOICED DISTRESS OVER NOT LEAVING YET. MULTIPLE CALLS BY FAMILY MEMBER THIS DAY, PATIENT IS TO DISCHARGE TOMORROW PER CM. FAMILY IS AWARE. ABDOMINAL DRESSING REMAINS C/D/I AND BUTTOCK WOUND DRESSING CHANGED BY WOUND NURSE. DENIED PAIN AND VOICED NO OTHER APPARENT NEEDS. WILL CONTINUE TO MONITOR AND FOLLOW PLAN OF CARE.
[2020-12-19 20:18] VITALS: BP 141/70
--- NOTE | 2020-12-20 05:01 | NUR ---
VSS-AFEBRILE. RESTED WELL THROUGH NIGHT WITH FEW NEEDS. NO C/O PAIN. ABDOMINAL INCISION INTACT WITH STER STRIPS IN PLACE, NO S/S OF INFECTION PRESENT. CALLS APPROPRIATELY WHEN NEEDING ANY ASSISTANCE, USED URINAL OVERNIGHT TO VOID. FALL PRECAUTIONS IN PLACE.
--- NOTE | 2020-12-20 08:30 | NUR ---
PT AWAKE THIS AM. PT LUNGS CLEAR. PT HAS HYPOACTIVE BOWEL SOUNDS. PT STATED HE HAD BM YESTERDAY. PT UP WITH WALKER. PT DENIES ANY PAIN. DRESSING TO COCCYX IS INTACT, CHANGE M-W-F. PT DRESSING TO ABD IS D/I. PT STATED THIS IDEA OF GOING TO REHAB IS HIS WIFES IDEA. HE SAID SHE GETS TO BARK ORDERS WHILE SHE IS SITTING AT HOME. HE IS AGREED TO GO TO REHAB, JUST RATHER GO HOME. PT ON ROOM AIR.
[2020-12-20 09:20] VITALS: BP 120/65
--- NOTE | 2020-12-20 10:14 | O ---
[facility] [place] [address] OPERATIVE REPORT Name: DAWN ELLISON Room #: 455-P [facility] M.R.#: [id number] Admission: 12/09/20 Attend Phys: Orlando Stephen Discharge: Date of : 36 Report #: [id number] THIS REPORT FOR: cc: LUI - No family physician/PCP LUI - No family physician/PCP Rajat Bartlett MD ~ DATE OF SERVICE: 12/10/2020 PREOPERATIVE DIAGNOSIS: Perforated bowel. POSTOPERATIVE DIAGNOSIS: Perforated appendicitis. OPERATION: Exploratory laparotomy with appendectomy. SURGEON: Rajat Bartlett MD ANESTHESIA: General. ESTIMATED BLOOD LOSS: 100 mL. SPECIMEN: Appendix. DESCRIPTION OF PROCEDURE: After informed consent was obtained, the patient was brought to the operating room and placed supine. SCDs were placed and working, preoperative antibiotics were administered, general anesthesia was induced. The abdomen was prepped and draped in the usual sterile fashion. A midline laparotomy incision was made measuring approximately 10 cm around the umbilicus. Fascia was incised and a self-retaining retractor was placed. Exploration was undertaken. I examined the liver. It appeared normal. The stomach and pylorus appeared normal. The sigmoid colon was visible and it appeared normal. In the right lower quadrant, there was a fibrinous rind in some of the small bowel and a small fluid collection consistent with the CT findings. I was able to exteriorize all of the small bowel from the ligament of Treitz down to the cecum. The cecum did appear irritated. However, there was no overt perforation in the cecum or the small bowel. I then examined the appendix. There was a perforation in the mid appendix which explained the small amount of free air. Therefore, the mesoappendix was ligated using the LigaSure device. The base of the appendix was ligated with a 3-0 PDS suture stick tie. The appendix was sent off as a specimen. The abdomen was copiously irrigated with normal saline. The fascia was closed with a running 0 PDS. Skin was closed with 4-0 Monocryl. Sterile dressings were applied. COMPLICATIONS: None. [facility] [address] [place] [address] OPERATIVE REPORT Name: DAWN ELLISON Room #: 455-P [facility] ..#: [id number] Admission: 12/09/20 Attend Phys: Orlando Stephen Discharge: Date of : 36 Report #: [id number] DISPOSITION: The patient was taken to recovery in satisfactory condition. <ELECTRONICALLY SIGNED> By: Rajat Bartlett MD 12/20/20 [id number] Rajat Bartlett MD /nt
--- NOTE | 2020-12-20 14:25 | NUR ---
PT ACEPTED TO [facility] HAVE [id number] FOR 1630 THIS DAY. CHART COPY MADE. ORDERS FAXED. CM NOTIFIED PT'S DTR LINUS SHE INDICATED THEY WILL BRING ITEMS TO FACILITY FOR PT. REPORT TO BE CALLED TO . NO OTHER CM INTERVENTION INDICATED. CASE CLOSED.
[2020-12-20 15:44] VITALS: BP 139/57
--- NOTE | 2020-12-20 16:31 | NUR ---
ATTEMPTED TO GIVE REPORT AT THIS TIME. THEY WILL CALL BACK, GAVE CALL BACK NUMBER.
--- NOTE | 2020-12-20 16:39 | NUR ---
PT VERBALY UNDERSTOOD D/C ORDERS. PT LEFT VIA W/C WITH STAFF DOWN TO ER FOR TRANSPORT. PT HAS ALL BELONGINGS WITH HIM.
--- NOTE | 2020-12-20 16:56 | NUR ---
GAVE REPORT TO AMY DICKSON AT REHAB FACILITY.
== END 2020-12-20 16:40 | DRG 853 ==
LOC: ER 20:33 → EROBS 23:44 → 4W 23:44
PROVIDERS: Nurse Practitioner Family; Physician Assistant; Surgery; ADMIT Hospitalist; ATTEND Hospitalist
PROC: 0DTJ0ZZ Resection of Appendix, Open Approach (ICD-10-PCS; principal; 2020-12-10)
DX: A41.9 Sepsis, unspecified organism (principal); K35.32 Acute appendicitis with perforation, localized peritonitis, and gangrene, without abscess; J18.9 Pneumonia, unspecified organism; K63.1 Perforation of intestine (nontraumatic); J96.01 Acute respiratory failure with hypoxia; K56.609 Unspecified intestinal obstruction, unspecified as to partial versus complete obstruction; E78.00 Pure hypercholesterolemia, unspecified; I10 Essential (primary) hypertension; E78.5 Hyperlipidemia, unspecified; I48.91 Unspecified atrial fibrillation; K21.9 Gastro-esophageal reflux disease without esophagitis; N32.81 Overactive bladder; R53.81 Other malaise; G31.84 Mild cognitive impairment of uncertain or unknown etiology; N40.0 Benign prostatic hyperplasia without lower urinary tract symptoms; Z96.652 Presence of left artificial knee joint; Z86.16 Personal history of COVID-19; Z79.899 Other long term (current) drug therapy; Z88.5 Allergy status to narcotic agent; Z79.82 Long term (current) use of aspirin; Z79.01 Long term (current) use of anticoagulants
CPT/HCPCS: 10040; 10047; 50093; 50101; 50386; 50445; 50455; 56455; 56525; 56526; 56530; 57092; 57103; 62110; 62900; 70005